=== PATIENT | female | born 1980 | race Caucasian/White ===

== ENCOUNTER 2024-02-28 00:10 | Day surgery (SDC) | payer OTHER, SELFPAY ==
--- NOTE | 2024-02-13 12:04 | PC.NURSE ---
PREOP INTERVIEW COMPLETED WITH INFORMATION RECEIVED FROM SHELDON NARVAEZ [facility]. NOT ALL QUESTIONS ARE ABLE TO BE ANSWERED WITH INFORMATION RECEIVED.
[2024-02-19 09:03] VITALS: BMI 37.5
--- NOTE | 2024-02-27 13:31 | WPDANESEPPF ---
Anes - Initial Pre Proc Eval Procedure: Operation Date: 02/28/24 09:00 Proposed Procedures p Screening Colonoscopy - Toan Hurtado DO Date/Time: 02/27/24 13:31 Surgeon: Toan Hurtado DO Pre Op Diagnosis: Family history colon cancer Patient Data Age: 43 Gender: F Height: 1.68 m Weight: 105.4 kg Allergies Allergy/AdvReac Type Severity Reaction Status Date / Time hydrocodone Allergy Unknown Unknown Verified 02/28/24 07:47 latex Allergy Unknown Unknown Verified 02/28/24 07:47 Home Medications Medication Instructions Recorded Confirmed Type hydrochlorothiazide 12.5 mg capsule 12.5 mg PO DAILY 02/13/24 02/28/24 History lisinopril 5 mg tablet 5 mg PO DAILY 02/13/24 02/28/24 History norethindrone 1 mg-ethinyl 1 tablet PO DAILY 02/13/24 02/28/24 History estradiol 35 mcg tablet Patient hx anesthesia problems: none Family hx anesthesia problems: none Results Review: All pre-operative results and documents have been reviewed as part of the pre-operative evaluation. [facility] Past Medical History Medical History (Updated 02/27/24 @ 13:32 by Dereck Valiente DO) Hypertension Inflammatory liver disease Social History Social History Substance use: former Substance use type: marijuana and amphetamines Living arrangements: incarcerated Anes - Eval Final PreProcedure Day of Procedure Patient weight: obese Heart: regular rate and rhythm Lungs: clear to auscultation Airway: Mallampati scale class II Neurological: alert and oriented Last oral intake: >/= 8 hours ASA classification: III Emergent: no Anesthetic plan: proceed Anesthesia type and monitoring: general GIVS and standard monitoring
[2024-02-28 07:35] VITALS: BP 143/90; PULSE 69; RESP 18; TEMP 35.7; O2SAT 98; BMI 39.9
[2024-02-28] MEDS: LACTATED RINGERS 1,000 ML 150 ML IV CONT (07:53)
--- NOTE | 2024-02-28 08:34 | PM.IMHP ---
H&P: HPI History of Present Illness Date/Time: 02/28/24 08:34 Chief Complaint: family history of colon cancer Narrative: this is a 43-year-old woman who presents for colonoscopy. She had a colonoscopy about 20 years ago for changes in bowel habits. She has a family history of colon cancer in her mother who was diagnosed in her early 60s. She denies any hematochezia or melena. Review of Systems Review of Systems: All systems reviewed & are unremarkable except as noted in HPI and below Constitutional: Constitutional: Denies chills, Denies fever(s), Denies headache(s) and Denies weight loss Eyes: Eyes: Denies change in vision ENT: Denies dizziness, Denies headache(s), Denies neck mass and Denies throat swelling Cardiovascular: Cardiovascular: Denies chest pain, Denies lightheadedness and Denies dyspnea Respiratory: Respiratory: Denies cough, Denies dyspnea and Denies wheezing Gastrointestinal: Gastrointestinal: Denies abdominal pain, Denies change in bowel habits, Denies nausea and Denies vomiting Genitourinary: Genitourinary: Denies hematuria and Denies dysuria Musculoskeletal: Musculoskeletal: Reports as per HPI Integumentary/Breasts: Skin/Breast: Reports as per HPI Neurologic: Denies dizziness and Denies headache(s) Allergic/Immunologic: Allergic/Immunologic: Denies throat swelling and Denies wheezing [facility] Past Medical History Medical History (Updated 02/28/24 @ 08:35 by Toan Hurtado DO) Hypertension Inflammatory liver disease Social History Social History Substance use: former Substance use type: marijuana and amphetamines Living arrangements: incarcerated Meds Home Medications and Allergies Home Medications Medication Instructions Recorded Confirmed Type hydrochlorothiazide 12.5 mg capsule 12.5 mg PO DAILY 02/13/24 02/28/24 History lisinopril 5 mg tablet 5 mg PO DAILY 02/13/24 02/28/24 History norethindrone 1 mg-ethinyl 1 tablet PO DAILY 02/13/24 02/28/24 History estradiol 35 mcg tablet Allergies Allergy/AdvReac Type Severity Reaction Status Date / Time hydrocodone Allergy Unknown Unknown Verified 02/28/24 07:47 latex Allergy Unknown Unknown Verified 02/28/24 07:47 Vital Signs Vital Signs - 24 hr 02/28/24 07:35 Temperature 35.7 C L Pulse Rate 69 Respiratory Rate 18 Blood Pressure 143/90 H Pulse Oximetry 98 Oxygen Delivery Room Air Exam Const: General: no acute distress and alert Orientation/consciousness: patient oriented x3 HENMT: Head: normocephalic and atraumatic Ears: hearing grossly normal bilaterally Face/Nose/Sinus: Normal nares present Mouth: Yes Normal oral and palatal mucosa present Eyes: Periorbital: periorbital findings normal Sclera: sclerae normal EOM: EOMs intact bilaterally Neck: Neck: normal visual inspection, no lymphadenopathy and trachea midline Chest: Chest palpation & inspection: normal inspection of the chest Resp: Effort & Inspection: normal respiratory effort Auscultation: clear to auscultation bilaterally Cardio: Jugular venous distension: no JVD Rate: regular rate Rhythm: regular rhythm Heart sounds: S1 normal heart sound present and S2 normal heart sound present Peripheral pulses: Peripheral pulses 2+ throughout GI: Inspection: normal to inspection GI Palp: Yes Soft to palpation, No Tenderness to palpation present (GI), No Guarding due to palpation present (GI) and No Rebound tenderness present Percussion: Yes normal to percussion Auscultation: normal bowel sounds : General: Yes no CVA tenderness Back/Spine/Pelvis: Back: no CVA tenderness Neuro: General: patient oriented x3, no focal motor deficits and CN's II-XI intact bilaterally Cognition (Neuro): normal cognition Speech: normal speech Motor exam (neuro): 5/5 motor strength present throughout Extrem: General: capillary refill normal and no clubbing, cyanosis or edema Assessment and Plan Assessment and plan (1) Family hx of colon cancer
[2024-02-28 08:59] VITALS: BP 154/82; PULSE 78; RESP 12; O2SAT 100
[2024-02-28 09:09] VITALS: BP 124/84; PULSE 71; RESP 17; O2SAT 98
[2024-02-28 09:19] VITALS: BP 121/82; PULSE 68; RESP 13; O2SAT 100
== END 2024-02-28 09:24 | disposition home or self-care (01) ==
PROVIDERS: Visit Provider Surgery
PROC: 0DJD8ZZ Inspection of Lower Intestinal Tract, Via Natural or Artificial Opening Endoscopic (ICD-10-PCS; CPT 45378; principal; 2024-02-28 09:00)
DX: Z12.11 Encounter for screening for malignant neoplasm of colon (principal); K63.5 Polyp of colon; Z80.0 Family history of malignant neoplasm of digestive organs; I10 Essential (primary) hypertension; E66.9 Obesity, unspecified; Z68.39 Body mass index [BMI] 39.0-39.9, adult
CPT/HCPCS: 45380; 88305; J2704; J7120